=== PATIENT | female | born 1970 | race Caucasian/White ===

== ENCOUNTER → 2018-12-12 | Outpatient (CLI) | payer BC | END | disposition home or self-care (01) | LOC: PLD 13:56 → LAB SHORT 13:56 | DX: D23.71 Other benign neoplasm of skin of right lower limb, including hip (principal); L91.0 Hypertrophic scar | CPT/HCPCS: 88305 ==

== ENCOUNTER 2022-01-05 01:00 | Emergency (ER) | payer BC ==
[~2022-01-05] VITALS: Ht 165.1 cm; Wt 154.2 kg
[2022-01-05] MEDS ORDERED: ATENOLOL25 MG PO (02:24)
[2022-01-05] MEDS ORDERED: METF500 PO (02:24)
[2022-01-05] MEDS ORDERED: GLIMEPIRIDE1 M2 PO (02:24)
[2022-01-05] MEDS ORDERED: SPIRONOLACTONE50 MG PO (02:24)
[2022-01-05 03:26] LABS: Source, Urine Clean Catch
[2022-01-05 03:30] LABS: Bilirubin, Urine Neg (Neg); Blood, Urine 5+ (Neg); Glucose Qualitative, Urine Neg (Neg); Ketones, Urine Neg (Neg); Leukocyte Esterase, Urine 1+ (Neg); Nitrite, Urine Neg (Neg); Protein, Urine 2+ (Neg); Specific Gravity, Urine 1.025 (1.003-1.022); Urobilinogen, Urine NORM (Normal)
[2022-01-05 03:47] LABS: Appearance, Urine Hazy (Clear); Bacteria Few /hpf; Color, Urine Yellow (P-Yellow); Squamous Epithelial Cells Few /hpf (Few)
[2022-01-05 04:09] LABS: BASOPHILS ABSOLUTE AUTO 0.04 K/mm3 (0.00-0.23); BASOPHILS PERCENT AUTO 0 % (0-2); EOSINOPHILS ABSOLUTE AUTO 0.25 K/mm3 (0.00-0.68); EOSINOPHILS PERCENT AUTO 2 % (0-6); Hematocrit 37.1 % (33.0-51.0); Hemoglobin 11.8 g/dL (11.5-16.0); IMMATURE GRAN ABSOLUTE AUTO 0.05 K/mm3 (0.00-0.10); IMMATURE GRAN PERCENT AUTO 1 % (0-1); LYMPHOCYTES ABSOLUTE AUTO 1.93 K/mm3 (0.84-5.20); LYMPHOCYTES PERCENT AUTO 18 % (21-46); MONOCYTES ABSOLUTE AUTO 0.86 K/mm3 (0.16-1.47); MONOCYTES PERCENT AUTO 8 % (4-13); Mean Corpuscular HGB Conc 31.8 g/dL (31.5-36.5); Mean Corpuscular Volume 88 fL (80-100); NEUTROPHILS ABSOLUTE AUTO 7.51 K/mm3 (1.96-9.15); NEUTROPHILS PERCENT AUTO 71 % (41-73); Platelet Count 295 K/mm3 (150-400); RDW Coefficient Variation 13.4 % (11.7-14.2); RDW Standard Deviation 42.8 fL (35.1-46.3); Red Blood Cell Count 4.22 M/mm3 (3.80-5.20); White Blood Cell Count 10.64 K/mm3 (4.00-11.30)
[2022-01-05 04:28] LABS: Alanine Aminotransfer (ALT/SGP 28 U/L (12-78); Albumin, Blood 3.3 g/dL (3.4-5.0); Albumin/Globulin Ratio 0.9 (0.8-1.8); Alk Phos 58 U/L (50-136); Anion Gap 6 mmol/L (6-16); Aspartate Aminotrans (AST/SGOT 10 U/L (12-37); Bilirubin, Total 0.9 mg/dL (0.1-1.0); Blood Urea Nitrogen 18 mg/dL (8-24); Bun/Creatinine Ratio 24.7 (12.0-20.0); CO2, Blood 27 mmol/L (21-32); Calcium, Blood 8.6 mg/dL (8.5-10.1); Chloride, Blood 108 mmol/L (98-108); Creatinine, Blood 0.73 mg/dL (0.40-1.00); Globulin, Blood 3.6 g/dL (2.2-4.0); Glomerular Filtration Rate >60 (60-); Glucose, Blood 104 mg/dL (70-99); Sodium, Blood 141 mmol/L (136-145); Total Protein, Blood 6.9 g/dL (6.4-8.2)
[2022-01-05] MEDS ORDERED: IBU600 MG PO (04:40)
[2022-01-05] MEDS ORDERED: LIDO700A20 TOP (04:40)
[2022-01-05] MEDS ORDERED: CYCL10 PO (04:40)
== END 2022-01-05 05:24 | disposition home or self-care (01) ==
LOC: ER 01:00
PROVIDERS: Emergency Medicine
DX: M54.50 Low back pain, unspecified (principal); Z88.2 Allergy status to sulfonamides; Z88.1 Allergy status to other antibiotic agents; Z88.0 Allergy status to penicillin
CPT/HCPCS: 74176; 80053; 81001; 83605; 85025; 87086; 87147; 96374; 96375; 96376; 99284-25; J1885; J2270; J7030

== ENCOUNTER 2023-11-26 22:33 | Emergency (ER) | payer OTHER, BC ==
[~2023-11-26] VITALS: Ht 165.1 cm; Wt 151.9 kg
[~2023-11-26 22:33] MED LIST: ATENOLOL25 MG PO; CYCL10 PO; GLIMEPIRIDE1 M2 PO; IBU600 MG PO; LIDO700A20 TOP; METF500 PO; SPIRONOLACTONE50 MG PO
[2023-11-27 03:30] VITALS: BP 148/97
== END 2023-11-27 03:31 | disposition home or self-care (01) ==
LOC: ER 22:33
DX: S80.02XA Contusion of left knee, initial encounter (principal); S40.011A Contusion of right shoulder, initial encounter; M19.90 Unspecified osteoarthritis, unspecified site; Z68.43 Body mass index [BMI] 50.0-59.9, adult; W01.10XA Fall on same level from slipping, tripping and stumbling with subsequent striking against unspecified object, initial encounter; Z88.2 Allergy status to sulfonamides; Z88.1 Allergy status to other antibiotic agents; Z88.0 Allergy status to penicillin; Z79.899 Other long term (current) drug therapy; Z79.84 Long term (current) use of oral hypoglycemic drugs; I10 Essential (primary) hypertension; E11.9 Type 2 diabetes mellitus without complications
CPT/HCPCS: 73030; 73562-LT; 99283-25